=== PATIENT | female | born 2000 ===

== ENCOUNTER 2021-04-19 00:23 | Inpatient (IN) | payer SELFPAY ==
[2021-04-19] MEDS ORDERED: Acetaminophen 500 MG Tab PO ONE (02:02)
[2021-04-19] MEDS ORDERED: Water For Irrigation,Sterile 1,000 ML Container IRR PRN (03:36)
[2021-04-19] MEDS ORDERED: Sodium Chloride 0.9% 2.5 ML Syringe FLUSH PRN (03:36)
[2021-04-19] MEDS ORDERED: Misoprostol 200 MCG Tab PO PRN (03:36)
[2021-04-19] MEDS ORDERED: Sodium Chloride 0.9% 10 ML Syringe FLUSH PRN (03:36)
[2021-04-19] MEDS ORDERED: Tranexamic Acid 1,000 MG in Sodium Chloride 0.9% 100 ML IV PRN (03:36)
[2021-04-19] MEDS ORDERED: Ondansetron 4 MG/2 ML SDV IVPUSH PRN (03:36)
[2021-04-19] MEDS ORDERED: Carboprost Tromethamine 250 MCG/1 ML Amp IM PRN (03:36)
[2021-04-19] MEDS ORDERED: Methylergonovine 0.2 MG/1 ML Amp IM PRN (03:36)
[2021-04-19] MEDS ORDERED: Lidocaine 1% 50 ML MDV INJECT PRN (03:36)
[2021-04-19] MEDS ORDERED: Sodium Chloride 0.9% 20 ML SDV IV PRN (03:36)
[2021-04-19] MEDS ORDERED: Oxytocin/0.9 % Sodium Chloride 30 UNIT/500 ML BAG IV SCH (03:45)
[2021-04-19] MEDS ORDERED: Lactated Ringers 1,000 ML IV SCH (03:45)
[2021-04-19] MEDS ORDERED: Butorphanol 1 MG/ML SDV IVPUSH ONE ×2 (04:00→07:30)
[2021-04-19] MEDS ORDERED: Ropivacaine HCl/PF 100 ML ONE (13:14)
[2021-04-19] MEDS ORDERED: Ropivacaine HCl/PF 200 MG in Premix Bag 1 BAG EPIDUR SCH (13:30)
[2021-04-19] MEDS ORDERED: ePHEDrine 50 MG/ML SDV IVPUSH PRN (13:30)
[2021-04-19] MEDS ORDERED: Lanolin 100% Cream 7 GM Tube TOP PRN (18:38)
[2021-04-19] MEDS ORDERED: Docusate Sodium 100 MG Cap PO PRN (18:38)
[2021-04-19] MEDS ORDERED: Ibuprofen 800 MG Tab PO PRN (18:38)
[2021-04-19] MEDS ORDERED: Benzocaine/Menthol 20%-0.5% Spray 78 GM Cannister TOP PRN (18:38)
[2021-04-19] MEDS ORDERED: Bisacodyl 10 MG Supp RECTAL PRN (18:38)
[2021-04-19] MEDS ORDERED: Acetaminophen 500 MG Tab PO PRN ×2 (18:38)
[2021-04-19] MEDS ORDERED: Witch Hazel Medicated Pads 40/Jar TOP PRN (18:38)
[2021-04-19] MEDS ORDERED: Ibuprofen 400 MG Tab PO PRN (18:38)
== END 2021-04-21 13:10 | disposition home or self-care (01) | DRG 807 ==
LOC: MW.OBCHECK 00:23 → MW.OB 00:27 → MW.OBCHECK 03:36 → MW.OB 03:36 → OBSVTOIN 17:54 → MW.OB 22:50
PROVIDERS: ADMIT Obstetrics & Gynecology Obstetrics; ATTEND Obstetrics & Gynecology Obstetrics
PROC: 10E0XZZ Delivery of Products of Conception, External Approach (ICD-10-PCS; principal; 2021-04-19)
PROC: 0KQM0ZZ Repair Perineum Muscle, Open Approach (ICD-10-PCS; 2021-04-19)
PROC: 10907ZC Drainage of Amniotic Fluid, Therapeutic from Products of Conception, Via Natural or Artificial Opening (ICD-10-PCS; 2021-04-19)
PROC: 3E0R3BZ Introduction of Anesthetic Agent into Spinal Canal, Percutaneous Approach (ICD-10-PCS; 2021-04-19)
PROC: 00HU33Z Insertion of Infusion Device into Spinal Canal, Percutaneous Approach (ICD-10-PCS; 2021-04-19)
DX: O75.3 Other infection during labor (principal); Z37.0 Single live birth; Z3A.38 38 weeks gestation of pregnancy; O70.1 Second degree perineal laceration during delivery; Z20.822 Contact with and (suspected) exposure to COVID-19
CPT/HCPCS: 01967; 36415; 51702; 59025; 59409; 81003; 85014; 85018; 85027; 86592; 86850; 86900; 86901; A9270-GY; J0595; J2795; J7120; U0002